=== PATIENT | male | born 1965 | race Caucasian/White ===

== ENCOUNTER → 2024-03-27 15:10 | Outpatient (CLI) | payer OTHER, SELFPAY ==
--- NOTE | 2024-03-27 15:14 | DI.MRI.S_ITS ---
PROCEDURE: MR ANKLE LT WO CON INDICATIONS: ACHILLES TENDINITIS TECHNIQUE: Noncontrast sagittal T1 spin echo and T2 fast spin echo with fat saturation, axial proton density fast spin echo and T2 fast spin echo with fat saturation, coronal T1 spin echo and T2 fast spin echo with fat saturation through the ankle/hindfoot. COMPARISON: [facility], [place], XR CALCANEUS LEFT, 02/19/2024, 10:01. FINDINGS: Image quality: Excellent. Bones: Mild marrow edema is present at the inferior calcaneal tuberosity, subjacent to the insertion of the central band of the plantar fascia (6/12). There is a small intraosseous ganglion cyst within the calcaneus at the angle of Gissane (6/15). The bone marrow signal is otherwise normal. The anterior process of the calcaneus and lateral process of the talus are intact. No talar dome osteochondral defect is seen. Joints: There is no significant joint effusion. Sinus tarsi: The sinus tarsi signal is normal. Syndesmotic ligaments: The anterior and posterior inferior syndesmotic ligaments are normal. Lateral collateral ligament: There is low signal thickening of the anterior talofibular ligament. The lateral collateral ligaments are otherwise normal. Deltoid ligament: There is mild intermediate signal of the posterior tibiotalar ligament (7/16). The tibiospring ligament is normal. Calcaneonavicular spring ligament: The superomedial component of the calcaneonavicular spring ligament is grossly intact. Tendons: There is a chronic split tear morphology of the peroneus brevis tendon with distal reconstitution beyond the retro malleolar groove (3/13). The Achilles tendon is normal. The extensor, flexor and peroneal tendons are otherwise normal. The peroneal tendons are appropriately situated within the retromalleolar groove, and the superficial peroneal retinaculum is intact. Plantar aponeurosis: There is mild thickening, abnormal intrasubstance signal, and perifascial edema around the central band of the plantar fascia (6/11). Plantar musculature: There are no findings of denervation involving the plantar muscles of the foot. Nerves: The visualized nerves are unremarkable. Other: Mild Achilles and plantar calcaneal enthesopathy (5/11). Mild subcutaneous edema along the medial malleolus (7/19). IMPRESSION: 1. Mild plantar fasciitis. 2. Chronic ATFL sprain. 3. Mild deltoid ligament sprain. 4. 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 Dictated by: Adán Ochoa M.D. on 03/31/2024 at 8:17 Approved by: Adán Ochoa M.D. on 03/31/2024 at 8:36
== END ==
PROVIDERS: PCP Family Medicine; Referring Provider Podiatrist; Visit Provider Podiatrist
DX: M76.62 Achilles tendinitis, left leg (principal); M72.2 Plantar fascial fibromatosis; S93.492A Sprain of other ligament of left ankle, initial encounter; S93.422A Sprain of deltoid ligament of left ankle, initial encounter; S96.812A Strain of other specified muscles and tendons at ankle and foot level, left foot, initial encounter
CPT/HCPCS: 73721

== ENCOUNTER → 2024-12-10 08:38 | Outpatient (CLI) | payer OTHER, SELFPAY ==
--- NOTE | 2024-12-10 08:40 | DI.RAD.S_ITS ---
PROCEDURE: FL ARTHROGRAM WRIST RT INDICATIONS: Sprain of other part of right wrist and hand COMPARISON: [facility], , MR WRIST RT W CON, 12/10/2024, 10:17. TECHNIQUE: After informed consent had been obtained, the wrist was examined fluoroscopically, and a site chosen for injection of the radiocarpal compartment from a dorsal approach. Skin was prepped and draped in a sterile fashion and 1% lidocaine infiltrated from the skin down to the articular surface. After subcutaneous lidocaine, a mixture of 0.1 mL ProHance, 5 mL Isovue 300, 5 mL normal saline was Needle was removed and dressing was applied. The patient experienced no complications throughout the procedure and left the fluoroscopic suite in no apparent distress. FINDINGS: A single fluoroscopic spot image demonstrates intra-articular location to injected iodinated contrast. IMPRESSION: Successful fluoroscopic-guided administration of dilute Gadolinium solution for wrist MR arthrogram. Dictated by: Jose A De Jesus M.D. on 12/10/2024 at 12:32 Approved by: Jose A De Jesus M.D. on 12/10/2024 at 12:49
--- NOTE | 2024-12-10 08:41 | DI.MRI.S_ITS ---
PROCEDURE: MR WRIST RT W CON INDICATIONS: Sprain of other part of right wrist and hand TECHNIQUE: After the administration of 3-4 mL of dilute intra-articular Gadolinium contrast into the radiocarpal compartment, coronal T1 spin echo with fat saturation and T2 fast spin echo with fat saturation, axial T1 spin echo and T2 fast spin echo with fat saturation, sagittal T1 spin echo with and without fat saturation through the wrist. COMPARISON: [facility], , [place] ARTHROGRAM WRIST RT, 12/10/2024, 9:47. FINDINGS: Quality: Adequate. Bones: No fracture. No osteonecrosis. Cartilage: No focal defect identified. Joints: Adequately distended radiocarpal joint by intra-articular contrast. Contrast extends to the distal radial ulnar joint. Tendons: Extensor tendons: 2nd and 3rd extensor compartment distended by contrast from injection. Flexor tendons: Unremarkable. Triangular fibrocartilage complex: Broad defect in the central articular disc. Lamina appears intact. Scapholunate ligament: Susceptibility artifact in the region of the scapholunate ligament with no visible tear or scapholunate widening. Nerves: Median and ulnar nerves are unremarkable. Skin, subcutaneous fat and muscle: No edema. IMPRESSION: Triangular fibrocartilage articular disc tear. Limited evaluation of the scapholunate ligament given susceptibility artifact from prior procedure. No visible contrast extension into the midcarpal joint to suggest full-thickness tear. Dictated by: Jose A De Jesus M.D. on 12/11/2024 at 11:29 Approved by: Jose A De Jesus M.D. on 12/16/2024 at 14:46
[2024-12-10] MEDS: LIDOCAINE 1% 20 ML INJ (11:27)
[2024-12-10] MEDS: SODIUM CHLORIDE 0.9 % 20 ML VIAL IV (11:27)
== END ==
LOC: RAD 08:39
PROVIDERS: PCP Family Medicine; Referring Provider Orthopaedic Surgery; Visit Provider Orthopaedic Surgery
DX: S63.8X1D Sprain of other part of right wrist and hand, subsequent encounter (principal); X58.XXXD Exposure to other specified factors, subsequent encounter; M24.131 Other articular cartilage disorders, right wrist
CPT/HCPCS: 25246; 73115; 73222; A9579; Q9967

== ENCOUNTER → 2024-12-18 12:20 | Outpatient (CLI) | payer OTHER, SELFPAY ==
--- NOTE | 2024-12-18 12:22 | DI.MRI.S_ITS ---
PROCEDURE: MR HEAD/BRAIN WO CON INDICATIONS: DIZZINESS TECHNIQUE: Non-contrast axial T1 spin echo, axial T2 fast spin echo, sagittal and axial FLAIR, coronal T2 fast spin echo, axial gradient echo, axial diffusion and ADC through the brain. COMPARISON: None. FINDINGS: Image quality: Excellent. CSF spaces: Ventricles appear symmetric in size and shape. Basal cisterns are patent. No extra-axial fluid collections. Brain: No intracranial bleeds or mass effects. There is cerebral volume loss for age. There are periventricular and deep white matter chronic small vessel ischemic changes. Brainstem appears normal. Diffusion-weighted images show no acute infarct. No chronic ischemic insults. Normal intravascular flow voids are present. Skull and face: Calvarial bone marrow is normal in signal. Orbits are normal. Sinuses: Mucous retention cysts can be seen along the inferior aspects of the maxillary sinuses. Sinuses and mastoids are otherwise relatively clear. IMPRESSION: No imaging explanation is found for this patient's presenting symptoms. To the limits of this noncontrast study, no findings of intracranial masses or mass effect can be seen. Dictated by: Soham Corbin M.D. on 12/18/2024 at 13:03 Approved by: Soham Corbin M.D. on 12/18/2024 at 13:03
== END ==
LOC: MRI 12:21
PROVIDERS: PCP Family Medicine; Referring Provider Family Medicine; Visit Provider Family Medicine
DX: R42 Dizziness and giddiness (principal)
CPT/HCPCS: 70551